=== PATIENT | female | born 1975 | race Caucasian/White ===

== ENCOUNTER 2016-04-19 20:13 | Emergency (ER) | payer MEDICAID, OTHER ==
[~2016-04-19] VITALS: Ht 152.4 cm; Wt 43.0 kg
[~2016-04-19 20:13] MED LIST: Z.0.NO CURRENT MEDS
[2016-04-19 20:16] VITALS: BP 123/75; PULSE 60; RESP 16; TEMP 96.7; TEMP 98.1; O2SAT 98
[2016-04-19] MEDS ORDERED: SODIUM CHLOR 0.9% 1000 ML INJ 1,000 ML IV ONE (20:42)
[2016-04-19 20:45] VITALS: BP 127/76; PULSE 61; RESP 18; O2SAT 100
[2016-04-19] MEDS ORDERED: MECLIZINE HCL 25 MG TAB PO ONE (20:45)
[2016-04-19] MEDS ORDERED: SODIUM CHLORIDE 0.9% FLUSH 5 ML FLUSH IVF PRN (20:45)
--- NOTE | 2016-04-19 20:45 | PD ---
HPI Chief Complaint: Dizziness Time Seen by Provider: 20:43 Travel History International Travel<30 days: No Contact w/Intl Traveler<30days: No Traveled to known affect area: No History of Present Illness HPI 40-year-old female presents to the emergency department for evaluation of dizziness and "hallucinations". Patient states she was seen at [facility] today and was diagnosed with bacterial gastroenteritis. She was discharged prescription with Bentyl, Flagyl, promethazine. She states that she started with diarrhea and vomiting last night. She states she was also dizzy at that time time. She does report a history of similar intermittent dizziness to what she has at this time. She states that she has not had any vomiting or diarrhea today. She denies any recent antibiotic use. No fevers or chills. No chest pain. No abdominal pain. No headache. Patient denies any syncopal episodes. No shortness of breath. PFSH Past Medical History ?: Not Social History Alcohol Use: No Tobacco Use: No Substance Use: No Allergies-Medications (Allergen,Severity, Reaction): Coded Allergies: Penicillin (Verified Allergy, Severe, 04/19/16) Shellfish (Verified Allergy, Severe, 04/19/16) Cipro (Verified Allergy, Mild, LEGS CRAMPS, 04/19/16) Reported Meds & Prescriptions Reported Meds & Active Scripts Active Reported Promethazine (Promethazine HCl) 12.5 Mg Tab 12.5 Mg PO Q4H PRN Bentyl (Dicyclomine HCl) 10 Mg Cap 10 Mg PO QID Flagyl (Metronidazole) 250 Mg Tab 250 Mg PO QID Alendronate (Alendronate Sodium) 35 Mg Tab 35 Mg PO Q7D [place] (Hydrocodone-Acetaminophen) 5-325 mg Tab 1 Tab PO Q4H PRN Mobic (Meloxicam) 15 Mg Tab 15 Mg PO DAILY Baclofen 10 Mg Tab 10 Mg PO TID Gabapentin 100 Mg Cap 100 Mg PO TID Review of Systems Except as stated in HPI: all other systems reviewed are Neg Physical Exam Narrative GENERAL: Well-developed well-nourished female patient. Afebrile. SKIN: Warm and dry. HEAD: Normocephalic. Atraumatic. EYES: No scleral icterus. No injection or drainage. NECK: Supple, trachea midline. No JVD or lymphadenopathy. CARDIOVASCULAR: Regular rate and rhythm without murmurs, gallops, or rubs. RESPIRATORY: Breath sounds equal bilaterally. No accessory muscle use. Lungs sounds are clear to auscultation GASTROINTESTINAL: Abdomen soft, non-tender, nondistended. MUSCULOSKELETAL: No cyanosis, or edema. BACK: Nontender without obvious deformity. No CVA tenderness. Data Data Last Documented VS Vital Signs Date Time Temp Pulse Resp B/P Pulse Ox O2 Delivery O2 Flow Rate FiO2 04/19/16 21:12 57 18 117/76 59 18 118/80 63 18 128/87 04/19/16 21:12 100 Room Air 04/19/16 20:16 98.1 Orders Basic Metabolic Panel (Bmp) (04/19/16 20:42) Complete Blood Count With Diff (04/19/16 20:42) Ecg Monitoring (04/19/16 20:42) Iv Access Insert/Monitor (04/19/16 20:42) Oximetry (04/19/16 20:42) Meclizine (Antivert) (04/19/16 20:45) Sodium Chloride 0.9% Flush (Ns Flush) (04/19/16 20:45) Sodium Chlor 0.9% 1000 Ml Inj (Ns 1000 M (04/19/16 20:42) Orthostatic Vital Signs (04/19/16 20:42) Labs Laboratory Tests Test 04/19/16 21:00 White Blood Count 5.7 TH/MM3 Red Blood Count 3.71 MIL/MM3 Hemoglobin 12.0 GM/DL Hematocrit 34.0 % Mean Corpuscular Volume 91.7 FL Mean Corpuscular Hemoglobin 32.3 PG Mean Corpuscular Hemoglobin 35.2 % Concent Red Cell Distribution Width 13.5 % Platelet Count 210 TH/MM3 Mean Platelet Volume 8.2 FL Neutrophils (%) (Auto) 45.9 % Lymphocytes (%) (Auto) 41.5 % Monocytes (%) (Auto) 10.0 % Eosinophils (%) (Auto) 1.8 % Basophils (%) (Auto) 0.8 % Neutrophils # (Auto) 2.6 TH/MM3 Lymphocytes # (Auto) 2.4 TH/MM3 Monocytes # (Auto) 0.6 TH/MM3 Eosinophils # (Auto) 0.1 TH/MM3 Basophils # (Auto) 0.0 TH/MM3 CBC Comment DIFF FINAL Differential Comment Sodium Level 142 MEQ/L Potassium Level 3.6 MEQ/L Chloride Level 108 MEQ/L Carbon Dioxide Level 24.9 MEQ/L Anion Gap 9 MEQ/L Blood Urea Nitrogen 7 MG/DL Creatinine 0.76 MG/DL Estimat Glomerular Filtration 85 ML/MIN Rate Random Glucose 115 MG/DL Calcium Level 8.7 MG/DL [facility] Medical Decision Making Medical Screen Exam Complete: Yes Emergency Medical Condition: Yes Medical Record Reviewed: Yes Differential Diagnosis Medication reaction versus vertigo versus dehydration Narrative Course 40-year-old female presents to the emergency department stating she is having a reaction to one of her medications she was prescribed today for a possible [place]. She was started on Flagyl, promethazine, Bentyl. Patient also does report a history of similar dizziness in the past. CBC, BMP are ordered and pending. Orthostatic vital signs are ordered and pending. Patient is given normal saline 1 L IV bolus. Patient is also given meclizine 50 mg by mouth. CBC shows no acute abnormalities. BMP shows no acute abnormality. Orthostatics are negative for orthostatic hypotension. Upon reevaluation, patient states she still feels dizzy. However, she is sleeping upon my reexamination. She states she would like to go home. Patient is instructed to stop Flagyl as symptoms are most likely due to a viral gastroenteritis. She is also to stop Phenergan and I will discharge her with a prescription for Zofran and meclizine. She is agreeable. I did instruct her to return for any acute worsening of symptoms. The patient was discharged in stable condition with instructions, including return instructions and follow up instructions. Diagnosis Primary Impression: Medication reaction Qualified Code: T88.7XXA - Medication reaction, initial encounter Additional Impression: Dizziness Referrals: Primary Care Physician call for appointment Patient Instructions: General Instructions, Vertigo (ED) Additional Instructions: Stop prescribed medications. Take Zofran as directed as needed for nausea/ vomiting. Take meclizine as directed as needed for dizziness. Follow-up with your primary care physician. Return to the emergency department for any acute worsening of symptoms. Med/Other Pt SpecificInfo: Prescription(s) given Scripts Meclizine 25 Mg Tab25 Mg PO TID PRN (VERTIGO) #16 TAB Ref 0 Prov:Miguelina Barajas 04/19/16 Ondansetron Odt 4 Mg Tab4 Mg SL Q6HR PRN (Nausea/Vomiting) #16 TAB Ref 0 Prov:Miguelina Barajas 04/19/16 Disposition: 01 DISCHARGE HOME Condition: Stable Miguelina Barajas Apr 19, 2016 20:45
[2016-04-19 21:12] VITALS: BP_SYST 117; BP_SYST 118; BP_SYST 128; BP_DIAS 76; BP_DIAS 80; BP_DIAS 87; RESP 18; O2SAT 100
[2016-04-19 21:14] LABS: AUTOMATED NEUTROPHIL # 2.6 TH/MM3 (1.8-7.7); BASOPHIL % 0.8 % (0.0-2.0); EOSINOPHIL # 0.1 TH/MM3 (0-0.4); EOSINOPHIL % 1.8 % (0.0-4.0); HEMO FLAGS DIFF FINAL; LYMPH % 41.5 % (9.0-44.0); LYMPHOCYTE # 2.4 TH/MM3 (1.0-4.8); MEAN CELL VOLUME 91.7 FL (80.0-100.0); MEAN CORPUSCULAR HEMOGLOBIN 32.3 PG (27.0-34.0); MEAN CORPUSCULAR HGB CONC 35.2 % (32.0-36.0); NEUT % 45.9 % (16.0-70.0); PLATELET COUNT 210 TH/MM3 (150-450); RED BLOOD COUNT 3.71 MIL/MM3 (4.00-5.30); RED CELL DISTRIBUTION WIDTH 13.5 % (11.6-17.2); WHITE BLOOD COUNT 5.7 TH/MM3 (4.0-11.0)
[2016-04-19] MEDS ORDERED: METR250 PO (21:34)
[2016-04-19] MEDS ORDERED: ALEN35TA24 PO (21:34)
[2016-04-19] MEDS ORDERED: GABA100C4 PO (21:34)
[2016-04-19] MEDS ORDERED: MOBI15TA PO (21:34)
[2016-04-19] MEDS ORDERED: DICY10 PO (21:34)
[2016-04-19] MEDS ORDERED: BACL10TA PO (21:34)
[2016-04-19] MEDS ORDERED: PROM12.54 PO (21:34)
[2016-04-19] MEDS ORDERED: NORC5TAB PO (21:34)
[2016-04-19 21:43] LABS: BICARBONATE 24.9 MEQ/L (21.0-32.0); POTASSIUM 3.6 MEQ/L (3.5-5.1)
[2016-04-19] MEDS ORDERED: ONDA4TAB7 SL (21:55)
[2016-04-19] MEDS ORDERED: MECL-62 PO (21:55)
== END 2016-04-19 22:32 | disposition home or self-care (01) ==
LOC: NEPE 20:13
DX: T50.905A Adverse effect of unspecified drugs, medicaments and biological substances, initial encounter (principal); Z88.0 Allergy status to penicillin
CPT/HCPCS: 80048; 85025; 96360; 99284; J7030

== ENCOUNTER 2016-12-06 13:08 | Emergency (ER) | payer MEDICAID, OTHER ==
[~2016-12-06] VITALS: Ht 152.4 cm; Wt 45.0 kg
[~2016-12-06 13:08] MED LIST changes: +ALEN35TA24 PO; +BACL10TA PO; +DICY10 PO; +GABA100C4 PO; +MECL-62 PO; +METR250 PO; +MOBI15TA PO; +NORC5TAB PO; +ONDA4TAB7 SL; +PROM12.54 PO; -Z.0.NO CURRENT MEDS
[2016-12-06 13:10] VITALS: BP 141/79; PULSE 94; RESP 12; TEMP 98.1; O2SAT 99
--- NOTE | 2016-12-06 13:21 | PD ---
Physical Exam Time Seen by Provider: 13:18 Narrative 41-year-old male presents emergency department complaint of left flank pain that started last night. Reports hematuria, frequency, hesitancy 4 days. Reports left lower quadrant abdominal pain. Denies vomiting. Reports subjective fever. Denies abnormal vaginal discharge, odor. Patient seen in triage. Vital signs reviewed. Patient awaiting bed placement. Data Data Last Documented VS Vital Signs Date Time Temp Pulse Resp B/P (MAP) Pulse Ox O2 Delivery O2 Flow Rate FiO2 12/06/16 13:10 98.1 94 12 141/79 (99) 99 MDM Supervised Visit with LUISA: Deborah Macias Dec 06, 2016 13:21
--- NOTE | 2016-12-06 17:55 | PD ---
HPI Chief Complaint: Flank/Kidney Pain Time Seen by Provider: 17:42 Travel History International Travel<30 days: No Contact w/Intl Traveler<30days: No Traveled to known affect area: No History of Present Illness HPI Patient comes in complaining of possible UTI that began 4-5 days ago. Patient reports that she noticed a foul-smelling odor from the urine as well as urinary frequency similar to previous UTIs. Patient states she began having a burning sensation of suprapubic abdominal wall 4 days ago as well. Patient states yesterday she began having left flank pain and thought she saw some blood in her urine. Patient states she took a couple left over Bactrim for previous UTIs without improvement of symptoms. Patient states she also tried increasing her fluid and taking cranberry juice. 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 Patient reports her last UTI was 2-3 months ago. Patient denies anything making it worse. Denies any vaginal discharge, fevers, nausea, vomiting, chest pain, or shortness of breath. PFSH Past Medical History Endocrine: Yes (adrenal mass) Genitourinary: Yes (recurrent UTIs) ?: Not LMP: 10/2016 Social History Alcohol Use: Yes (occ) Tobacco Use: No Substance Use: No Allergies-Medications (Allergen,Severity, Reaction): Coded Allergies: penicillin G (Unverified Allergy, Severe, 12/06/16) shellfish derived (Unverified Allergy, Severe, 12/06/16) ciprofloxacin (Unverified Allergy, Mild, LEGS CRAMPS, 12/06/16) Reported Meds & Prescriptions Reported Meds & Active Scripts Active Bactrim DS (Sulfamethoxazole-Trimethoprim) 800-160 Mg Tab 1 Tab PO BID 14 Days Reported Alendronate (Alendronate Sodium) 35 Mg Tab 35 Mg PO Q7D Baclofen 10 Mg Tab 10 Mg PO BID Review of Systems Except as stated in HPI: all other systems reviewed are Neg Physical Exam Narrative GENERAL: Well-developed, well nourished, in no acute distress, and non-ill appearing. SKIN: Focused skin assessment warm and dry. HEAD: Atraumatic. Normocephalic. EYES: Pupils equal and round. EOMI. No scleral icterus. No injection or drainage. ENT: No nasal bleeding or discharge. Mucous membranes pink and moist. NECK: Trachea midline. Supple. No nuclear rigidity. CARDIOVASCULAR: Regular rate and rhythm. No murmur appreciated. RESPIRATORY: No accessory muscle use. No respiratory distress. Clear to auscultation. Breath sounds equal bilaterally. GASTROINTESTINAL: Abdomen soft, nondistended, and no guarding. Hepatic and splenic margins not palpable. Normal bowel sounds 4. No pulsatile mass. Patient reports tenderness to palpation suprapubic and left CVA tenderness. MUSCULOSKELETAL: No obvious deformities. No clubbing. No cyanosis. No edema. Full range of motion. NEUROLOGICAL: Awake and alert. No obvious cranial nerve deficits. Motor grossly within normal limits. Normal speech. PSYCHIATRIC: Appropriate mood and affect; insight and judgment normal. Data Data Last Documented VS Vital Signs Date Time Temp Pulse Resp B/P (MAP) Pulse Ox O2 Delivery O2 Flow Rate FiO2 12/06/16 19:53 12/06/16 19:25 70 20 98 Room Air 12/06/16 13:10 98.1 Orders Orders Complete Blood Count With Diff (12/06/16 17:49) Comprehensive Metabolic Panel (12/06/16 17:49) Lipase (12/06/16 17:49) Prothrombin Time / Inr (Pt) (12/06/16 17:49) Act Partial Throm Time (Ptt) (12/06/16 17:49) Urinalysis - C+S If Indicated (12/06/16 17:49) Ct Abd/Pel W/O Iv Contrast (12/06/16 17:49) Iv Access Insert/Monitor (12/06/16 17:49) Ecg Monitoring (12/06/16 17:49) Oximetry (12/06/16 17:49) Sodium Chloride 0.9% Flush (Ns Flush) (12/06/16 18:00) Urine Culture (12/06/16 18:54) Sulfamet-Trimeth Ds 800-160 Mg (Bactrim (12/06/16 19:30) Ed Discharge Order (12/06/16 19:31) Labs Laboratory Tests Test 12/06/16 18:07 12/06/16 18:54 White Blood Count 8.1 TH/MM3 Red Blood Count 4.04 MIL/MM3 Hemoglobin 13.2 GM/DL Hematocrit 38.3 % Mean Corpuscular Volume 94.8 FL Mean Corpuscular Hemoglobin 32.7 PG Mean Corpuscular Hemoglobin Concent 34.5 % Red Cell Distribution Width 14.0 % Platelet Count 213 TH/MM3 Mean Platelet Volume 8.6 FL Neutrophils (%) (Auto) 78.1 % Lymphocytes (%) (Auto) 15.4 % Monocytes (%) (Auto) 6.2 % Eosinophils (%) (Auto) 0.1 % Basophils (%) (Auto) 0.2 % Neutrophils # (Auto) 6.3 TH/MM3 Lymphocytes # (Auto) 1.2 TH/MM3 Monocytes # (Auto) 0.5 TH/MM3 Eosinophils # (Auto) 0.0 TH/MM3 Basophils # (Auto) 0.0 TH/MM3 CBC Comment DIFF FINAL Differential Comment Prothrombin Time 10.5 SEC Prothromb Time International Ratio 1.0 RATIO Activated Partial Thromboplast Time 26.9 SEC Blood Urea Nitrogen 6 MG/DL Creatinine 0.61 MG/DL Random Glucose 118 MG/DL Total Protein 7.3 GM/DL Albumin 4.1 GM/DL Calcium Level 9.1 MG/DL Alkaline Phosphatase 57 U/L Aspartate Amino Transf (AST/SGOT) 13 U/L Alanine Aminotransferase (ALT/SGPT) 15 U/L Total Bilirubin 0.5 MG/DL Sodium Level 138 MEQ/L Potassium Level 3.8 MEQ/L Chloride Level 105 MEQ/L Carbon Dioxide Level 25.3 MEQ/L Anion Gap 8 MEQ/L Estimat Glomerular Filtration Rate 109 ML/MIN Lipase 85 U/L Urine Color YELLOW Urine Turbidity HAZY Urine pH 6.5 Urine Specific [place] 1.012 Urine Protein NEG mg/dL Urine Glucose (UA) NEG mg/dL Urine Ketones NEG mg/dL Urine Occult Blood NEG Urine Nitrite POS Urine Bilirubin NEG Urine Urobilinogen LESS THAN 2.0 MG/DL Urine Leukocyte Esterase NEG Urine RBC 1 /hpf Urine WBC 1 /hpf Urine Squamous Epithelial Cells 1 /hpf Urine Bacteria OCC /hpf Urine Mucus FEW /lpf Microscopic Urinalysis Comment CULTURE INDICATED MDM Medical Decision Making Medical Screen Exam Complete: Yes Emergency Medical Condition: Yes Differential Diagnosis UTI, pyelonephritis, renal calculi, electrolyte abnormality, other Narrative Course The patient presentation with history and evaluation are consistent with uncomplicated pyelonephritis. The patient looks great and is tolerating fluids. No significant co morbidities. There is no evidence to suspect sepsis or bacteremia. The patient was discharged on antibiotics and given warnings to return if condition worsens in anyway, vomiting and unable to tolerate medications or fluids, worsening back pain or as needed. The patient agrees with plan of care. The patient was instructed to follow up with their physician for re-evaluation but may return here as needed. There is no clinical evidence to suggest atypical appendicitis, or vascular pathology (AAA, etc.). There is no clinical evidence to suggest atypical cervicitis, PID or TOA. Patient in no obvious distress upon re-evaluation. All pertinent laboratory/ Radiology result(s) discussed with patient. Discussed patient with Dr. De La Vega prior to discharge, who is in agreement with plan of care and disposition. Patient was asked if they wanted to speak to my attending, which the patient did not wish to do at this time. Any questions/concerns in reference to patient diagnosis/condition discussed and clarified prior to patient's discharge. Reinforced sheer importance of close follow up with patient's primary physician or primary care clinic. Instructed patient to return to ED immediately, if symptoms return/worsen. Patient showed understanding of above instructions. Further instructions and recommendations were detailed in discharge paperwork. Patient ambulated without difficulty out of ED at discharge. Diagnosis Primary Impression: Pyelonephritis Patient Instructions: General Instructions, Kidney Infection (ED), Urinary Tract Infection in Women (ED) Additional Instructions: Follow-up with your primary care physician next week for evaluation. Take all medication as prescribed. Drink plenty of non-caffeinated nonalcoholic fluids. Return to the emergency department if symptoms get worse. Med/Other Pt SpecificInfo: Prescription(s) given Scripts Sulfamethoxazole-Trimethoprim (Bactrim DS) 800-160 Mg Tab 1 TAB PO BID for Infection for 14 Days, #28 TAB 0 Refills Prov: Batool De La Vega MD 12/06/16 Disposition: 01 DISCHARGE HOME Condition: Stable Johnnie Ceron Dec 06, 2016 17:55
[2016-12-06 18:00] VITALS: RESP 16; O2SAT 98
[2016-12-06] MEDS ORDERED: SODIUM CHLORIDE 0.9% FLUSH 10 ML FLUSH IV FLUSH PRN (18:00)
[2016-12-06 18:24] LABS: AUTOMATED NEUTROPHIL # 6.3 TH/MM3 (1.8-7.7); BASOPHIL % 0.2 % (0.0-2.0); EOSINOPHIL % 0.1 % (0.0-4.0); HEMATOCRIT 38.3 % (35.0-46.0); HEMO FLAGS DIFF FINAL; LYMPH % 15.4 % (9.0-44.0); LYMPHOCYTE # 1.2 TH/MM3 (1.0-4.8); MEAN CELL VOLUME 94.8 FL (80.0-100.0); MEAN CORPUSCULAR HEMOGLOBIN 32.7 PG (27.0-34.0); MEAN CORPUSCULAR HGB CONC 34.5 % (32.0-36.0); MONO % 6.2 % (0.0-8.0); NEUT % 78.1 % (16.0-70.0); PLATELET COUNT 213 TH/MM3 (150-450); RED BLOOD COUNT 4.04 MIL/MM3 (4.00-5.30); WHITE BLOOD COUNT 8.1 TH/MM3 (4.0-11.0)
[2016-12-06 18:41] LABS: ANION GAP 8 MEQ/L (5-15); AST (GOT) 13 U/L (15-37); BICARBONATE 25.3 MEQ/L (21.0-32.0); BLOOD UREA NITROGEN 6 MG/DL (7-18); CHLORIDE 105 MEQ/L (98-107); GLOMERULAR FILTRATION RATE 109 ML/MIN (>89); POTASSIUM 3.8 MEQ/L (3.5-5.1); SODIUM (NA) 138 MEQ/L (136-145)
[2016-12-06 18:43] LABS: ALT (GPT) 15 U/L (10-53); APTT (PATIENT) 26.9 SEC (24.3-30.1); PROTHROMBIN TIME - PATIENT 10.5 SEC (9.8-11.6)
[2016-12-06 18:44] LABS: ALKALINE PHOSPHATASE 57 U/L (45-117); TOTAL BILIRUBIN ADULT 0.5 MG/DL (0.2-1.0)
--- NOTE | 2016-12-06 18:56 | RADRPT ---
EXAM DATE/TIME: 12/06/2016 18:22 [facility] COMPARISON: No previous studies available for comparison. INDICATIONS : Left flank pain and hematuria ORAL CONTRAST: No oral contrast ingested. RADIATION DOSE: 13.28 CTDIvol (mGy) MEDICAL HISTORY : None SURGICAL HISTORY : None. ENCOUNTER: Initial ACUITY: 1 day PAIN SCALE: 7/10 LOCATION: Left flank TECHNIQUE: Volumetric scanning of the abdomen and pelvis was performed. Using automated exposure control and ad justment of the mA and/or kV according to patient size, radiation dose was kept as low as reasonably achievable to obtain optimal diagnostic quality images. DICOM format image data is available electro nically for review and comparison. FINDINGS: LOWER LUNGS: The visualized lower lungs are clear. LIVER: Homogeneous density without lesion. There is no dilation of the biliary tree. No calcified gallston es. SPLEEN: Normal size without lesion. PANCREAS: Within normal limits. KIDNEYS: Normal in size and shape. There is no mass, stone, or hydronephrosis. ADRENAL GLANDS: Within normal limits. VASCULAR: There is no aortic aneurysm. BOWEL/MESENTERY: The stomach, small bowel, and colon demonstrate no acute abnormality. There is no free intraperitone al air or fluid. No inflammatory changes. Stool throughout the colon. ABDOMINAL WALL: Within normal limits. RETROPERITONEUM: There is no lymphadenopathy. BLADDER: No wall thickening or mass. No evidence of bladder stones. There are calcified phleboliths deep in th e pelvis. REPRODUCTIVE: The uterus is prominent in size. There is a right adnexal cyst measuring 4 cm x 2.9 cm. No definite f ree fluid in the cul-de-sac. INGUINAL: There is no lymphadenopathy or hernia. MUSCULOSKELETAL: Within normal limits for patient age. CONCLUSION: 1. No evidence of calcified renal stones or hydronephrosis. 2. Right adnexal cyst measuring 4.0 x 2.9 cm. 3. Otherwise, unremarkable exam for patient's age. Fran Cope MD on December 06, 2016 at 18:51 Board Certified Radiologist. This report was verified electronically.
[2016-12-06 19:15] LABS: BACTERIA, URINE OCC /hpf; BLOOD, URINE NEG (NEG); COMMENT (UR) CULTURE INDICATED; CULTURE IF INDICATED CULTURE INDICATED; GLUCOSE,URINE NEG (NEG); KETONE, URINE NEG (NEG); MUCUS URINE FEW /lpf (OCC); NITRITE,URINE POS (NEG); PH, URINE 6.5 (5.0-8.5); SQUAMOUS EPITHELIAL CELL URINE 1 /hpf (0-5); URINE COLOR YELLOW (YELLW/STRAW)
[2016-12-06 19:25] VITALS: BP 99/68; PULSE 70; RESP 20; O2SAT 98
[2016-12-06] MEDS ORDERED: BACT800T5 PO (19:28)
[2016-12-06] MEDS ORDERED: SULFAMETHOXAZOLE-TRIMETHOPRIM DS 800-160 MG TAB PO ONE (19:30)
== END 2016-12-06 19:53 | disposition home or self-care (01) ==
LOC: NEPE 13:08
DX: N12 Tubulo-interstitial nephritis, not specified as acute or chronic (principal); B96.20 Unspecified Escherichia coli [E. coli] as the cause of diseases classified elsewhere
CPT/HCPCS: 74176; 80053; 81001; 83690; 85025; 85610; 85730; 87077; 87086; 87186; 99284